=== PATIENT | male | born 1960 | race Caucasian/White ===

== ENCOUNTER 2023-08-17 23:03 | Emergency (ER) | payer MEDICARE, SELFPAY ==
--- NOTE | ~2023-08-17 | XR_ITS ---
XR hip LT 2V w AP pelvis DATE: 08/18/2023 06:17 INDICATION: Left hip pain TECHNIQUE: AP pelvis. AP and lateral views of the left hip. COMPARISON: None FINDINGS: There is prominent flattening deformity/partial collapse of the left femoral head with patc hy sclerosis and lucency, irregularity of the articular surface of the femoral head, consistent with avascular necrosis. There is secondary osteoarthritis. These findings are new since 02/04/2008. There is minimal irregularity of the cortex of the right femoral head. There is mild right hip osteoa rthritis. Normal alignment of the pubic symphysis and sacral iliac joints. No pelvic fracture or bone destructi on is noted. Osteopenia. 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 Consid er MR examination of the hips Mild right hip osteoarthritis Osteopenia Reviewed, dictated and finalized at location A. IMPRESSION: Prominent avascular necrosis/partial collapse of the left femoral h ead, secondary mildly prominent left hip osteophyte is Mild irregularity of the right femoral head suggests possible avascular necrosi s on the right. Consider MR examination of the hips Mild right hip osteoarthritis Osteopenia
[2023-08-17 23:23] VITALS: BP 141/85; PULSE 93; RESP 17; TEMP 36.4; O2SAT 97
--- NOTE | 2023-08-17 23:52 | PC.NURSE ---
Pt to room 7 from triage with c/o L hip pain x 4 years that is not controlled by his 5mg oxycodone that was prescribed by his pmd. States that he has seen his pmd and [facility] multiple times with c/o hip pain and now has an appt on 08/25 with orthopedist. Pt making statements in triage that he was going to kill himself over the pain. Upon completing the Moore screening, pt denies any plan or intent stating that he just needs pain control. Pt changed into paper scrubs, placed in belonging bag and placed in secure location. Pt has family at bedside. ERP notified of pt and c/o, and moderate score on Moore screening.
[2023-08-18] VITALS (11 sets, daily range): BP systolic 95–130; BP diastolic 55–91; PULSE 68–84; RESP 14–17; O2SAT 94–99
--- NOTE | 2023-08-18 00:46 | ED.LOWEXIN ---
HPI - Extremity Injury (Lower) General Chief Complaint: Extremity Injury, Lower <Genia Santana PA-C - Last Filed: 08/18/23 21:43> Stated Complaint: Left hip pain <CHRISTIANO Rosenberg Last Filed: 08/18/23 21:43> Time Seen by Provider: 08/17/23 23:49 <Genia Santana PA-C - Last Filed: 08/18/23 21:43> Source: patient <CHRISTIANO Rosenberg Last Filed: 08/18/23 21:43> Mode of arrival: ambulatory <CHRISTIANO Rosenberg Last Filed: 08/18/23 21:43> Limitations: no limitations <CHRISTIANO Rosenberg Last Filed: 08/18/23 21:43> History of Present Illness HPI Narrative: This is a 63 year old male that presents to the ER for chronic left hip pain. Reports he was seen at [place] [facility] for this yesterday. He had imaging of his hip which showed bad arthritis. Reports the pain is so bad he wants to kill himself. He told the triage nurse he wants to shoot himself. He has no prior attempts at self harm. Reports he does not take any medications for depression. Reports history of chronic back and hip pain for which he takes hydrocodone. Reports this medication does not help him. He has also been to pain management for his back. Denies saddle anesthesia or bowel/bladder incontinence. <Genai Santana PA-C - Last Filed: 08/18/23 21:43> Related Data Allergies/Adverse Reactions: Allergies Allergy/AdvReac Type Severity Reaction Status Date / Time No Known Allergies Allergy Mild Verified 07/02/17 12:21 <CHRISTIANO Rosenberg Last Filed: 08/18/23 21:43> Review of Systems Review of Systems: CONSTITUTIONAL: Denies fever SKIN: Denies rash MUSCULOSKELETAL: Reports back pain, joint pain, and myalgia. NEUROLOGIC: Denies numbness, or weakness. <CHRISTIANO Rosenberg Last Filed: 08/18/23 21:43> All systems reviewed & are unremarkable except as noted in HPI and below <Genia Santana PA-C - Last Filed: 08/18/23 21:43> PMFSH Past Medical History Medical History: Medical History (Updated 08/18/23 @ 21:43 by Genia Santana PA-C) History of hyperlipidemia History of hypertension <Genia Santana PA-C - Last Filed: 08/18/23 21:43> Social History Social History: Social History (Updated 08/18/23 @ 00:56 by Genia Santana PA-C) Smoking status: Current every day smoker Substance use: never <Genia Santana PA-C - Last Filed: 08/18/23 21:43> Exam Narrative: GENERAL: Well-appearing, well-nourished, and in no acute distress. HEAD: Normocephalic, atraumatic. EYES: EOMI. CHEST: Clear to auscultation. No respiratory distress. No wheezes rales or rhonchi HEART: Regular rate and rhythm. No murmur heard. Normal peripheral pulses. EXTREMITIES: Normal range of motion. No edema. Strength equal in bilateral lower extremities (5/5) SKIN: Warm, dry, no rash. NEURO: No focal deficits. Alert and oriented x3. PSYCH: Normal mood and affect <Genia Santana PA-C - Last Filed: 08/18/23 21:43> Course Course Emergency Course: Care taken over by Dr. Martins at shift change pending repeat ethanol level and crisis evaluation <Genia Santana PA-C - Last Filed: 08/18/23 21:43> Vital Signs Vital signs: Vital Signs Temperature 97.6 F 08/17/23 23:23 Pulse Rate 93 08/17/23 23:23 Respiratory Rate 17 08/17/23 23:23 Blood Pressure 141/85 H 08/17/23 23:23 Pulse Oximetry 97 08/17/23 23:23 Oxygen Delivery Room Air 08/17/23 23:23 Temperature 97.6 F 08/17/23 23:23 Pulse Rate 78 08/18/23 06:45 Respiratory Rate 15 08/18/23 06:45 Blood Pressure 112/62 08/18/23 06:45 Pulse Oximetry 97 08/18/23 06:45 Oxygen Delivery Room Air 08/17/23 23:23 <Genia Santana PA-C - Last Filed: 08/18/23 21:43> Vital Signs Temperature 97.6 F 08/17/23 23:23 Pulse Rate 93 08/17/23 23:23 Respiratory Rate 17 08/17/23 23:23 Blood Pressure 141/85 H 08/17/23 23:23 Pulse Oximetry 97 08/17/23 23:23 Oxygen Delivery Room Air 07/22
[2023-08-18 01:05] LABS: Basophils Absolute Auto 0.1 K/mm3 (0.0-0.1); Basophils Percent Auto 0.6 % (0.2-1.2); Eosinophils Absolute Auto 0.3 K/mm3 (0-0.3); Eosinophils Percent Auto 2.2 % (0-4.4); Hematocrit 48.8 % (42.0-52.0); Hemoglobin 16.8 g/dL (14.0-18.0); Immature Granulocyte Absolute 0.06 K/mm3 (0.00-0.031); Immature Granulocyte Percent A 0.4 % (0-0.5); Lymphocytes Absolute Auto 2.86 K/mm3 (0.9-3.2); Lymphocytes Percent Auto 20.5 % (18.3-44.2); Mean Corpuscular HGB Conc 34.4 g/dl (32-36); Mean Corpuscular Hemoglobin 31.9 pg (26-34); Mean Corpuscular Volume 92.6 fl (80-100); Mean Platelet Volume 10.6 fl (7.4-10.4); Monocytes Absolute Auto 1.1 K/mm3 (0.1-0.6); Monocytes Percent Auto 7.7 % (2.6-8.5); Neutrophils Absolute Auto 9.5 K/mm3 (1.3-6.7); Neutrophils Percent Auto 68.6 % (45.5-73.1); Platelet Count Result 260 k/mm3 (150-375); Red Blood Count 5.27 M/mm3 (4.6-6.20); Red Cell Distribution Width 13.2 % (11.5-14.5); White Blood Count 13.9 K/mm3 (4.5-10.0)
[2023-08-18 01:09] LABS: Appearance Urine Clear (Clear); Bilirubin Urine Negative (Negative); Blood Urine Negative (Negative); Color Urine Yellow (Yellow); Glucose Urine UA Negative (Negative); Ketones Urine Negative (Negative); Leukocyte Esterase Ur Negative LEU/UL (Negative); Nitrate Urine Negative (Negative); Protein Urine Negative (Negative); Urobilinogen Urine 0.2 mg/dL (<2.0); pH Urine 5.5 (5.0-9.0)
[2023-08-18 01:10] LABS: Add Urine Microscopic? NO; Specific Grav Ur 1.003 (1.001-1.035)
[2023-08-18 01:13] LABS: Ethanol 195 mg/dL (<10)
[2023-08-18] MEDS: diazePAM INJ (*CRX) 10 MG/2 ML SYRINGE 5 MG IV PUSH (01:13)
[2023-08-18 01:14] LABS: Alanine Aminotransferase 21 U/L (6-50); Albumin Level 4.1 g/dL (3.5-5.1); Alkaline Phosphatase 66 U/L (38-126); Anion Gap 8 mmol/L (4-12); Aspartate Amino Transferase 23 U/L (17-59); Bilirubin,Total 0.6 mg/dL (0.2-1.3); Blood Urea Nitrogen 5 mg/dL (9-20); Calcium 8.3 mg/dL (8.4-10.2); Carbon Dioxide 20 mmol/L (22-30); Chloride 110 mmol/L (98-107); Estimated CRCL calculation 91 ml/min; Estimated Glomerular Filt Rate > 60; Glucose 103 mg/dL (65-110); Potassium 3.7 mmol/L (3.4-5.0); Sodium 138 mmol/L (137-145)
[2023-08-18] MEDS: KETOROLAC 15 MG/ML VIAL (*BKC) IV PUSH (01:15)
[2023-08-18] MEDS: ACETAMINOPHEN 500 MG TABLET 1000 MG PO (01:16)
[2023-08-18] MEDS: oxyCODONE HCL (*CRX) 5 MG TAB IR PO (01:16)
[2023-08-18 01:52] LABS: Amphetamine Screen Urine Negative (Negative); Barbiturate Screen Urine Negative (Negative); Benzodiazepines Screen Urine Negative (Negative); Cannabinoid Screen Urine Negative (Negative); Cocaine Screen Urine Negative (Negative); Methadone Screen Urine Negative (Negative); Opiate Screen Urine Negative (Negative); Phencyclidine Screen Urine Negative (Negative)
[2023-08-18] MEDS: MORPHINE SULFATE (*CRX) 4 MG/ML INJ IV PUSH (03:11)
[2023-08-18] MEDS: ONDANSETRON INJ 4 MG/2 ML VIAL IV PUSH (05:26)
[2023-08-18 06:51] LABS: Ethanol 59 mg/dL (<10)
== END 2023-08-18 07:09 | disposition home or self-care (01) ==
PROVIDERS: Emergency Provider Physician Assistant; PCP Family Medicine
DX: M25.552 Pain in left hip (principal); G89.29 Other chronic pain; R78.0 Finding of alcohol in blood; Y90.6 Blood alcohol level of 120-199 mg/100 ml; M16.0 Bilateral primary osteoarthritis of hip; I10 Essential (primary) hypertension; E78.5 Hyperlipidemia, unspecified; M85.852 Other specified disorders of bone density and structure, left thigh; R93.6 Abnormal findings on diagnostic imaging of limbs
CPT/HCPCS: 36415; 73502; 80053; 80307; 81003; 84443; 85025; 96374; 96375; 99284; A9270; J1885; J2270; J2405; J3360